=== PATIENT | male | born 1960 | race Caucasian/White ===

== ENCOUNTER 2016-12-11 13:50 | Emergency (ER) | payer BC, MEDICAID ==
[~2016-12-11] VITALS: Ht 165.1 cm; Wt 89.0 kg
[2016-12-11 13:55] VITALS: BP 158/88
[2016-12-11] MEDS ORDERED: KETOROLAC 60MG/2ML VIAL IM ONE (14:15)
== END 2016-12-11 16:43 | disposition home or self-care (01) ==
LOC: ER 14:38
DX: S20.219A Contusion of unspecified front wall of thorax, initial encounter (principal); I10 Essential (primary) hypertension; F17.200 Nicotine dependence, unspecified, uncomplicated; Z98.890 Other specified postprocedural states; W01.198A Fall on same level from slipping, tripping and stumbling with subsequent striking against other object, initial encounter; Y93.89 Activity, other specified; Y92.89 Other specified places as the place of occurrence of the external cause; Y99.8 Other external cause status
CPT/HCPCS: 71101; 96372; 99284; J1885

== ENCOUNTER 2024-01-09 14:41 | Inpatient (IN) | payer MEDICARE, MEDICAID ==
[~2024-01-09] VITALS: Ht 167.6 cm; Wt 64.0 kg
[~2024-01-09 14:41] MED LIST: AMI2 PO; APIX5TAB MT
[2024-01-09 15:40] LABS: BASOPHILS % 0.5 % (0.0-2.0); EOSINOPHILS % 0.8 % (0.0-5.0); HEMATOCRIT. 42.8 % (42.0-52.0); HEMOGLOBIN. 15.1 g/dL (14.0-18.0); LYMPHOCYTES % 18.4 % (20.0-50.0); MEAN CORPUSCULAR HEMOGLOBIN 33.5 pg (28.0-32.0); MEAN CORPUSCULAR HGB CONC 35.3 g/dL (31.0-37.0); MEAN PLATELET VOLUME 7.3 fl (7.4-10.4); MONOCYTES % 5.7 % (2.0-8.0); NEUTROPHILS % 74.6 % (40.0-76.0); PLATELET 248 x1000/uL (130-400); RED BLOOD CELL COUNT 4.51 mill/uL (4.7-6.1); RED CELL DISTRIBUTION WIDTH 13.2 % (11.6-14.6); WHITE BLOOD COUNT 8.3 x1000/uL (4.5-11.0)
[2024-01-09 15:50] LABS: CHLORIDE 102 mEq/L (98-107); POTASSIUM 3.9 mEq/L (3.5-5.1); SODIUM 137 mEq/L (136-145)
[2024-01-09 15:51] LABS: CALCIUM 9.3 mg/dL (8.7-10.4); CARBON DIOXIDE 28 mEq/L (21-32)
[2024-01-09 15:56] LABS: CREATININE 0.9 mg/dL (0.6-1.3); GLUCOSE 228 mg/dL (70-105); UREA NITROGEN BLOOD 10 mg/dL (9-23)
[2024-01-09 19:00] LABS: CHLORIDE 104 mEq/L (98-107)
[2024-01-09 19:01] LABS: CARBON DIOXIDE 29 mEq/L (21-32); POTASSIUM 3.6 mEq/L (3.5-5.1); SODIUM 139 mEq/L (136-145)
[2024-01-09 19:02] LABS: BASOPHILS % 0.5 % (0.0-2.0); EOSINOPHILS % 1.8 % (0.0-5.0); HEMATOCRIT. 43.1 % (42.0-52.0); HEMOGLOBIN. 15.1 g/dL (14.0-18.0); LYMPHOCYTES % 20.2 % (20.0-50.0); MEAN CORPUSCULAR HEMOGLOBIN 33.5 pg (28.0-32.0); MEAN CORPUSCULAR HGB CONC 35.1 g/dL (31.0-37.0); MEAN CORPUSCULAR VOLUME 95.3 fL (80.0-94.0); MEAN PLATELET VOLUME 7.3 fl (7.4-10.4); MONOCYTES % 6.2 % (2.0-8.0); NEUTROPHILS % 71.3 % (40.0-76.0); PLATELET 240 x1000/uL (130-400); RED BLOOD CELL COUNT 4.52 mill/uL (4.7-6.1); RED CELL DISTRIBUTION WIDTH 13.5 % (11.6-14.6)
[2024-01-09 19:05] LABS: PARTIAL THROMBOPLASTIN TIME 28.6 sec (23.4-31.0); PROTHROMBIN TIME 11.4 sec (9.6-11.0)
[2024-01-09 19:06] LABS: CREATININE 0.7 mg/dL (0.6-1.3); GLUCOSE 157 mg/dL (70-105)
[2024-01-09 19:07] LABS: UREA NITROGEN BLOOD 8 mg/dL (9-23)
[2024-01-09 19:08] LABS: ALANINE AMINOTRANSFERASE 38 IU/L (10-49); ALBUMIN 4.5 g/dL (3.2-4.8); ASPARTATE AMINOTRANSFERASE 22 IU/L (<34)
[2024-01-09 19:09] LABS: BILIRUBIN TOTAL 0.7 mg/dL (0.1-1.0); PROTEIN TOTAL 7.4 g/dL (6.0-8.3); TROPONIN I HIGH SENSITIVITY 7 ng/L (3.0-53)
[2024-01-09 21:22] LABS: CLARITY URINE CLEAR (CLEAR); COLOR URINE YELLOW (YELLOW); SPECIFIC GRAVITY URINE 1.015 (1.005-1.030)
[2024-01-09 21:23] LABS: GLUCOSE URINE 1+ (NEGATIVE); KETONES URINE NEGATIVE (NEGATIVE); NITRITE URINE NEGATIVE (NEGATIVE); OCCULT BLOOD URINE NEGATIVE (NEGATIVE); PROTEIN URINE NEGATIVE (NEGATIVE); UROBILINOGEN URINE 0.2 E.U./dL (0.2-1.0)
[2024-01-09 21:24] LABS: LEUKOCYTE ESTERASE URINE NEGATIVE (NEGATIVE)
[2024-01-09 21:28] LABS: BACTERIA URINE TRACE; RBC URINE NONE SEEN /hpf (0-2); SQUAMOUS EPITHELIAL CELL URINE RARE /lpf (RARE/1+); WBC URINE NONE SEEN /hpf (0-2)
[2024-01-09] MEDS ORDERED: IOHEXOL-300 100 ML BOTTLE ONE (22:23)
[2024-01-10] MEDS ORDERED: ENOXAPARIN 40MG/0.4ML SYR SUBCUT SCH (00:30)
[2024-01-10] MEDS ORDERED: ACETAMINOPHEN 325MG TABLET PO PRN ×2 (00:30)
[2024-01-10] MEDS ORDERED: IPRATROPIUM/ALBUTEROL 0.5-3(2.5)MG/3ML NEB HHN PRN (00:30)
[2024-01-10] MEDS ORDERED: ONDANSETRON HCL 4MG/2ML INJ IV PRN (00:30)
[2024-01-10] MEDS ORDERED: DEXTROSE 50% WATER 50ML SYRINGE IV PRN (00:30)
[2024-01-10 01:18] VITALS: BP 138/90; PULSE 63; RESP 18; TEMP 98.1
[2024-01-10 01:20] LABS: THYROID STIMULATING HORMONE 1.29 uIU/mL (0.55-4.78)
[2024-01-10] MEDS: APIXABAN 5 MG TABLET PO SCH (02:16)
[2024-01-10] MEDS: FAMOTIDINE 20MG TABLET PO SCH (02:16)
[2024-01-10 04:00] VITALS: BP 159/85; PULSE 68; RESP 18; TEMP 98.6
[2024-01-10] MEDS: BLOOD SUGAR DIAGNOSTIC STRIP TEST SCH (07:10)
[2024-01-10 07:18] LABS: CHLORIDE 105 mEq/L (98-107); POTASSIUM 3.7 mEq/L (3.5-5.1); SODIUM 139 mEq/L (136-145)
[2024-01-10 07:20] LABS: CALCIUM 9.1 mg/dL (8.7-10.4)
[2024-01-10 07:23] LABS: CREATININE 0.6 mg/dL (0.6-1.3)
[2024-01-10 07:24] LABS: GLUCOSE 172 mg/dL (70-105)
[2024-01-10] MEDS: INSULIN LISPRO 100 UNITS/ML SUBCUT SCH (07:24)
[2024-01-10 07:25] LABS: UREA NITROGEN BLOOD 6 mg/dL (9-23)
[2024-01-10 07:27] LABS: PHOSPHORUS 3.7 mg/dL (2.5-4.9)
[2024-01-10 08:00] VITALS: BP 146/86; PULSE 87; RESP 16; TEMP 97.7
[2024-01-10 08:10] LABS: FOLIC ACID (FOLATE) SERUM 17.03 ng/mL (>5.38); VITAMIN B12 SERUM 543 pg/mL (211-911)
[2024-01-10] MEDS: AMIODARONE HCL 200 MG TABLET PO SCH (08:51)
[2024-01-10] MEDS: ASPIRIN 81MG EC TABLET PO SCH (08:51)
[2024-01-10 11:04] LABS: IRON 91 ug/dL (65-175)
[2024-01-10 11:07] LABS: TOTAL IRON BINDING CAPACITY 212 ug/dl (250-425)
[2024-01-10 12:00] VITALS: BP 141/73; PULSE 73; RESP 18; TEMP 97.9
[2024-01-10 12:57] LABS: CARBON DIOXIDE 26 mEq/L (21-32)
[2024-01-10] MEDS ORDERED: MULT-1203 PO (14:47)
[2024-01-10 16:00] VITALS: BP 138/75; PULSE 78; RESP 16; TEMP 97.8
[2024-01-10 20:00] VITALS: BP 125/66; PULSE 76; RESP 17; TEMP 97.7
[2024-01-10] MEDS: ATORVASTATIN CALCIUM 40MG TABLET PO SCH (20:20)
[2024-01-11] VITALS: BP 136/71; PULSE 70; RESP 18; TEMP 98
[2024-01-11 04:00] VITALS: BP 118/69; PULSE 72; RESP 20; TEMP 97.9
[2024-01-11 07:14] LABS: BASOPHILS % 0.7 % (0.0-2.0); EOSINOPHILS % 2.1 % (0.0-5.0); HEMATOCRIT. 41.7 % (42.0-52.0); HEMOGLOBIN. 14.6 g/dL (14.0-18.0); LYMPHOCYTES % 25.2 % (20.0-50.0); MEAN CORPUSCULAR HGB CONC 34.9 g/dL (31.0-37.0); MEAN CORPUSCULAR VOLUME 94.5 fL (80.0-94.0); MEAN PLATELET VOLUME 7.7 fl (7.4-10.4); MONOCYTES % 7.8 % (2.0-8.0); NEUTROPHILS % 64.2 % (40.0-76.0); PLATELET 212 x1000/uL (130-400); RED BLOOD CELL COUNT 4.41 mill/uL (4.7-6.1); RED CELL DISTRIBUTION WIDTH 13.4 % (11.6-14.6); WHITE BLOOD COUNT 6.5 x1000/uL (4.5-11.0)
[2024-01-11 07:25] LABS: CARBON DIOXIDE 27 mEq/L (21-32); CHLORIDE 104 mEq/L (98-107); SODIUM 138 mEq/L (136-145)
[2024-01-11 07:29] LABS: T4 FREE 1.24 ng/dL (0.89-1.76)
[2024-01-11 07:30] LABS: CREATININE 0.8 mg/dL (0.6-1.3)
[2024-01-11 07:31] LABS: GLUCOSE 257 mg/dL (70-105); UREA NITROGEN BLOOD 11 mg/dL (9-23)
[2024-01-11 08:00] VITALS: BP 125/68; PULSE 82; RESP 18; TEMP 96.8
[2024-01-11] MEDS: AMLODIPINE 5MG TABLET PO SCH (09:13)
[2024-01-11 12:00] VITALS: BP_SYST 123; BP_SYST 131; BP_DIAS 60; BP_DIAS 77; PULSE 60; PULSE 74; RESP 18; TEMP 96.8
[2024-01-11 16:00] VITALS: BP 132/75; PULSE 74; RESP 18; TEMP 97.7
[2024-01-11 20:00] VITALS: BP 138/73; PULSE 82; RESP 20; TEMP 98
[2024-01-11] MEDS: INSULIN GLARGINE 100 UNITS/ML SUBCUT SCH (21:09)
[2024-01-12] VITALS: BP 129/66; PULSE 82; RESP 18; TEMP 97.8
[2024-01-12 04:00] VITALS: BP 120/66; PULSE 69; RESP 18; TEMP 97.8
[2024-01-12] MEDS: INSULIN LISPRO 100 UNITS/ML SUBCUT SCH (07:40)
[2024-01-12 08:00] VITALS: BP 142/82; PULSE 70; RESP 20; TEMP 97.6
[2024-01-12] MEDS ORDERED: CLOP-31 PO (11:36)
[2024-01-12] MEDS ORDERED: FAMO20TA8 PO (11:36)
[2024-01-12] MEDS ORDERED: AMLO5TAB88 PO (11:36)
[2024-01-12] MEDS ORDERED: LIP40 PO (11:36)
[2024-01-12] MEDS ORDERED: ASPI-1406 PO (11:36)
[2024-01-12 15:15] VITALS: BP 134/71; PULSE 82; TEMP 97.2; O2SAT 97
[2024-01-13] MEDS ORDERED: INSULIN GLARGINE 100 UNITS/ML SUBCUT SCH (10:00)
== END 2024-01-12 17:00 | DRG 689 ==
LOC: ER 14:41 → 8WST 22:21
PROVIDERS: ADMIT Internal Medicine; ATTEND Internal Medicine
DX: N39.0 Urinary tract infection, site not specified (principal); G92.8 Other toxic encephalopathy; I47.10 Supraventricular tachycardia, unspecified; I48.92 Unspecified atrial flutter; E11.9 Type 2 diabetes mellitus without complications; K59.00 Constipation, unspecified; I48.91 Unspecified atrial fibrillation; I25.10 Atherosclerotic heart disease of native coronary artery without angina pectoris; I10 Essential (primary) hypertension; E78.5 Hyperlipidemia, unspecified; E11.65 Type 2 diabetes mellitus with hyperglycemia; D75.89 Other specified diseases of blood and blood-forming organs; I25.2 Old myocardial infarction; Z87.891 Personal history of nicotine dependence; Z86.73 Personal history of transient ischemic attack (TIA), and cerebral infarction without residual deficits; Z79.899 Other long term (current) drug therapy; Z79.82 Long term (current) use of aspirin; Z79.02 Long term (current) use of antithrombotics/antiplatelets; Z79.01 Long term (current) use of anticoagulants
CPT/HCPCS: 36415; 70491; 70551; 71045; 80048; 80053; 80061; 81003; 82607; 82746; 82962; 83036; 83540; 83550; 83605; 83735; 83880; 84100; 84439; 84443; 84484; 85025; 85651; 93005; 97162; 97535; 99285; J1815; Q9967

== ENCOUNTER 2024-05-01 15:22 | Emergency (ER) | payer MEDICARE, MEDICAID ==
[~2024-05-01] VITALS: Ht 165.1 cm; Wt 64.0 kg
[~2024-05-01 15:22] MED LIST changes: +AMLO5TAB88 PO; +ASPI-1406 PO; +CLOP-31 PO; +FAMO20TA8 PO; +LIP40 PO; +MULT-1203 PO
[2024-05-01 15:27] VITALS: O2SAT 97
[2024-05-01 15:41] VITALS: TEMP 37.00296
[2024-05-01 16:08] LABS: BASOPHILS % 0.7 % (0.0-2.0); EOSINOPHILS % 1.2 % (0.0-5.0); HEMATOCRIT. 41.7 % (42.0-52.0); HEMOGLOBIN. 14.7 g/dL (14.0-18.0); LYMPHOCYTES % 18.1 % (20.0-50.0); MEAN CORPUSCULAR HEMOGLOBIN 32.8 pg (28.0-32.0); MEAN CORPUSCULAR HGB CONC 35.2 g/dL (31.0-37.0); MEAN CORPUSCULAR VOLUME 93.1 fL (80.0-94.0); MEAN PLATELET VOLUME 6.8 fl (7.4-10.4); MONOCYTES % 5.7 % (2.0-8.0); NEUTROPHILS % 74.3 % (40.0-76.0); PLATELET 242 x1000/uL (130-400); RED BLOOD CELL COUNT 4.48 mill/uL (4.7-6.1); RED CELL DISTRIBUTION WIDTH 13.2 % (11.6-14.6); WHITE BLOOD COUNT 7.7 x1000/uL (4.5-11.0)
[2024-05-01 16:16] LABS: CHLORIDE 105 mEq/L (98-107); POTASSIUM 3.2 mEq/L (3.5-5.1); SODIUM 137 mEq/L (136-145)
[2024-05-01 16:17] LABS: CARBON DIOXIDE 25 mEq/L (21-32)
[2024-05-01 16:18] LABS: CALCIUM 9.6 mg/dL (8.7-10.4)
[2024-05-01 16:22] LABS: CREATININE 0.8 mg/dL (0.6-1.3); GLUCOSE 377 mg/dL (70-105)
[2024-05-01 16:23] LABS: UREA NITROGEN BLOOD 9 mg/dL (9-23)
[2024-05-01 16:24] LABS: ALANINE AMINOTRANSFERASE 19 IU/L (10-49); ALBUMIN 4.5 g/dL (3.2-4.8); ASPARTATE AMINOTRANSFERASE 20 IU/L (<34)
[2024-05-01 16:25] LABS: BILIRUBIN DIRECT 0.1 mg/dL (<=3.0); BILIRUBIN TOTAL 0.4 mg/dL (0.1-1.0)
[2024-05-01] MEDS: INSULIN REGULAR (HUMULIN R) 1000UNITS/10ML VIAL SUBCUT NR (17:57)
[2024-05-01] MEDS: POTASSIUM CHLORIDE 20MEQ TABLET SR PO NR (17:57)
[2024-05-01] MEDS: SODIUM CHLORIDE 0.9% 1,000 ML IV ONE (17:57)
[2024-05-01] MEDS: ONDANSETRON HCL 4MG/2ML INJ IV NR (18:09)
[2024-05-01] MEDS: MORPHINE SULFATE 4 MG/ML INJ (FOR IV/IM USE) IV NR (18:11)
[2024-05-01 19:50] LABS: CLARITY URINE CLEAR (CLEAR); COLOR URINE YELLOW (YELLOW); GLUCOSE URINE 2+ (NEGATIVE); KETONES URINE NEGATIVE (NEGATIVE); LEUKOCYTE ESTERASE URINE NEGATIVE (NEGATIVE); NITRITE URINE NEGATIVE (NEGATIVE); OCCULT BLOOD URINE NEGATIVE (NEGATIVE); PROTEIN URINE NEGATIVE (NEGATIVE); SPECIFIC GRAVITY URINE 1.027 (1.005-1.030)
[2024-05-01 20:01] LABS: BACTERIA URINE NONE SEEN; RBC URINE NONE SEEN /hpf (0-2); SQUAMOUS EPITHELIAL CELL URINE RARE /lpf (RARE/1+)
[2024-05-01] MEDS ORDERED: IBUP-2028 MT (20:01)
[2024-05-01 20:02] VITALS: BP 154/88; PULSE 83; RESP 16; O2SAT 98
[2024-05-01 20:02] LABS: WBC URINE 0-2 /hpf (0-2)
[2024-05-01] MEDS ORDERED: IOHEXOL-300 100 ML BOTTLE ONE (23:34)
== END 2024-05-01 20:12 | disposition home or self-care (01) ==
LOC: ER 15:22
DX: R10.31 Right lower quadrant pain (principal); E87.6 Hypokalemia; R73.9 Hyperglycemia, unspecified; I10 Essential (primary) hypertension; Z86.73 Personal history of transient ischemic attack (TIA), and cerebral infarction without residual deficits; Z98.890 Other specified postprocedural states; Z79.899 Other long term (current) drug therapy
CPT/HCPCS: 99285; 74177; 96374; 96361; 96375; 80076; 80048; 81003; 82962; 83605; 85025; 36415; Q9967; J2405; J2270; J1815

== ENCOUNTER 2024-08-29 09:48 | Emergency (ER) | payer MEDICARE, MEDICAID ==
[~2024-08-29] VITALS: Ht 162.6 cm; Wt 65.7 kg
[~2024-08-29 09:48] MED LIST changes: +IBUP-2028 MT
[2024-08-29 09:52] VITALS: PULSE 122; O2SAT 98
[2024-08-29 10:00] VITALS: BP 151/84; RESP 16; TEMP 98.6; O2SAT 99
[2024-08-29 11:00] LABS: BASOPHILS % 0.5 % (0.0-2.0); EOSINOPHILS % 0.6 % (0.0-5.0); HEMATOCRIT. 45.5 % (42.0-52.0); HEMOGLOBIN. 15.7 g/dL (14.0-18.0); LYMPHOCYTES % 15.5 % (20.0-50.0); MEAN CORPUSCULAR HEMOGLOBIN 32.5 pg (28.0-32.0); MEAN CORPUSCULAR HGB CONC 34.5 g/dL (31.0-37.0); MEAN CORPUSCULAR VOLUME 94.1 fL (80.0-94.0); MEAN PLATELET VOLUME 6.8 fl (7.4-10.4); MONOCYTES % 6.5 % (2.0-8.0); NEUTROPHILS % 76.9 % (40.0-76.0); PLATELET 231 x1000/uL (130-400); RED BLOOD CELL COUNT 4.84 mill/uL (4.7-6.1); RED CELL DISTRIBUTION WIDTH 14.6 % (11.6-14.6); WHITE BLOOD COUNT 8.2 x1000/uL (4.5-11.0)
[2024-08-29 11:11] LABS: CHLORIDE 103 mEq/L (98-107); SODIUM 138 mEq/L (136-145)
[2024-08-29 11:12] LABS: CARBON DIOXIDE 27 mEq/L (21-32)
[2024-08-29 11:13] LABS: CALCIUM 10.1 mg/dL (8.7-10.4)
[2024-08-29 11:17] LABS: CREATININE 0.7 mg/dL (0.6-1.3)
[2024-08-29 11:18] LABS: TROPONIN I HIGH SENSITIVITY 5 ng/L (3.0-53); UREA NITROGEN BLOOD 12 mg/dL (9-23)
[2024-08-29 11:19] LABS: ALANINE AMINOTRANSFERASE 13 IU/L (10-49); ALBUMIN 4.6 g/dL (3.2-4.8); ASPARTATE AMINOTRANSFERASE 16 IU/L (<34)
[2024-08-29 11:20] LABS: BILIRUBIN DIRECT 0.2 mg/dL (<=3.0); BILIRUBIN TOTAL 0.5 mg/dL (0.1-1.0); PROTEIN TOTAL 7.4 g/dL (6.0-8.3)
[2024-08-29 11:25] LABS: GLUCOSE 224 mg/dL (70-105)
[2024-08-29 12:44] LABS: CLARITY URINE CLEAR (CLEAR); COLOR URINE DARK YELLOW (YELLOW); GLUCOSE URINE 2+ (NEGATIVE); KETONES URINE TRACE (NEGATIVE); LEUKOCYTE ESTERASE URINE TRACE (NEGATIVE); NITRITE URINE NEGATIVE (NEGATIVE); OCCULT BLOOD URINE NEGATIVE (NEGATIVE); PH URINE 5.5 (4.5-8.0); PROTEIN URINE TRACE (NEGATIVE); SPECIFIC GRAVITY URINE 1.026 (1.005-1.030)
[2024-08-29] MEDS ORDERED: METH-653 MT (13:13)
[2024-08-29] MEDS ORDERED: IBUP-2029 MT (13:13)
[2024-08-29 14:20] LABS: MUCUS URINE TRACE /lpf (NONE/TRACE)
[2024-08-29 14:21] LABS: BACTERIA URINE TRACE; RBC URINE NONE SEEN /hpf (0-2); SQUAMOUS EPITHELIAL CELL URINE RARE /lpf (RARE/1+); WBC URINE 0-2 /hpf (0-2)
== END 2024-08-29 13:22 | disposition home or self-care (01) ==
LOC: ER 09:48
DX: S33.5XXA Sprain of ligaments of lumbar spine, initial encounter (principal); R00.2 Palpitations; E11.9 Type 2 diabetes mellitus without complications; I10 Essential (primary) hypertension; Z86.73 Personal history of transient ischemic attack (TIA), and cerebral infarction without residual deficits; Z79.899 Other long term (current) drug therapy; Z98.890 Other specified postprocedural states; W18.39XA Other fall on same level, initial encounter; Y93.89 Activity, other specified; Y92.89 Other specified places as the place of occurrence of the external cause; Y99.8 Other external cause status
CPT/HCPCS: 36415; 71045; 80048; 80076; 81003; 84484; 85025; 93005; 99285